=== PATIENT | male | born 1985 | race African-American/Black ===

== ENCOUNTER 2024-09-05 13:19 | Emergency (ER) | payer MEDICAID ==
[~2024-09-05] VITALS: Ht 175.3 cm; Wt 82.0 kg
[2024-09-05 13:20] VITALS: O2SAT 100
[2024-09-05 14:35] LABS: BASOPHILS % 0.4 % (0.0-2.0); EOSINOPHILS % 1.6 % (0.0-5.0); HEMATOCRIT. 44.1 % (42.0-52.0); HEMOGLOBIN. 14.4 g/dL (14.0-18.0); LYMPHOCYTES % 38.7 % (20.0-50.0); MEAN CORPUSCULAR HEMOGLOBIN 28.1 pg (28.0-32.0); MEAN CORPUSCULAR HGB CONC 32.6 g/dL (31.0-37.0); MEAN CORPUSCULAR VOLUME 86.1 fL (80.0-94.0); MEAN PLATELET VOLUME 9.4 fl (7.4-10.4); NEUTROPHILS % 52.3 % (40.0-76.0); PLATELET 150 x1000/uL (130-400); RED BLOOD CELL COUNT 5.12 mill/uL (4.7-6.1); RED CELL DISTRIBUTION WIDTH 14.5 % (11.6-14.6); WHITE BLOOD COUNT 4.9 x1000/uL (4.5-11.0)
[2024-09-05 14:41] LABS: CHLORIDE 102 mEq/L (98-107); POTASSIUM 3.5 mEq/L (3.5-5.1); SODIUM 140 mEq/L (136-145)
[2024-09-05 14:42] LABS: CALCIUM 9.6 mg/dL (8.7-10.4); CARBON DIOXIDE 29 mEq/L (21-32)
[2024-09-05 14:47] LABS: CREATININE 0.9 mg/dL (0.6-1.3); GLUCOSE 95 mg/dL (70-105); UREA NITROGEN BLOOD 9 mg/dL (9-23)
[2024-09-05 14:48] LABS: TROPONIN I HIGH SENSITIVITY < 4 ng/L (3.0-53)
[2024-09-05 17:08] LABS: *AMPHETAMINES SCREEN URINE NEGATIVE (NEGATIVE); *BARBITURATES SCREEN URINE NEGATIVE (NEGATIVE); *BENZODIAZEPINES SCREEN URINE NEGATIVE (NEGATIVE); *COCAINE SCREEN URINE NEGATIVE (NEGATIVE); CANNABINOID URINE SCREEN NEGATIVE (NEGATIVE); ECSTASY MDMA SCREEN URINE NEGATIVE (NEGATIVE); METHADONE URINE SCREEN NEGATIVE (NEGATIVE); OPIATES URINE SCREEN NEGATIVE (NEGATIVE); PHENCYCLIDINE URINE SCREEN NEGATIVE (NEGATIVE)
[2024-09-05] MEDS: KETOROLAC 30MG/ML VIAL IV ONE (17:36)
[2024-09-05] MEDS ORDERED: IBUP-2030 MT (18:34)
[2024-09-05] MEDS: LIDOCAINE HCL 1% 20ML VIAL INFIL ONE (18:43)
[2024-09-05 19:00] VITALS: BP 131/48; PULSE 73; RESP 18; TEMP 36.8; O2SAT 98
== END 2024-09-05 19:00 | disposition home or self-care (01) ==
LOC: ER 13:19 → CANBEDREQ 18:58 → ER 19:00
DX: S01.01XA Laceration without foreign body of scalp, initial encounter (principal); Z59.02 Unsheltered homelessness; Z79.899 Other long term (current) drug therapy; W19.XXXA Unspecified fall, initial encounter; Y93.89 Activity, other specified; Y92.89 Other specified places as the place of occurrence of the external cause; Y99.8 Other external cause status
CPT/HCPCS: 80305; 80048; 80320; 83880; 85025; 84484; 36415; 71045; 70450; 93005; 12002; 96374; 99285; J1885; J3490; Z7610 ×3; A4606; G0480

== ENCOUNTER 2024-09-12 11:55 | Emergency (ER) | payer MEDICAID ==
[~2024-09-12] VITALS: Ht 175.3 cm; Wt 77.0 kg
[~2024-09-12 11:55] MED LIST: IBUP-2030 MT
[2024-09-12 11:57] VITALS: O2SAT 99
[2024-09-12 12:14] VITALS: BP 130/76; PULSE 90; RESP 16; TEMP 36.6; O2SAT 100
== END 2024-09-12 13:42 | disposition home or self-care (01) ==
LOC: ER 11:55
DX: S01.01XD Laceration without foreign body of scalp, subsequent encounter (principal); W19.XXXD Unspecified fall, subsequent encounter
CPT/HCPCS: 99281